=== PATIENT | female | born 1945 | race Caucasian/White ===

== ENCOUNTER 2022-04-22 12:06 | Emergency (ER) | payer OTHER, MEDICAID ==
[~2022-04-22] VITALS: Ht 157.5 cm; Wt 81.6 kg
[2022-04-22 12:07] VITALS: BP 119/47
--- NOTE | 2022-04-22 12:07 | NUR ---
BIBA to bed 02
--- NOTE | 2022-04-22 12:10 | NUR ---
76/F BIBA from [facility] for right earache x 1 hr. Per EMS, pt stated something "feels stuck in ear." Patient at baseline mentation A&Ox1-2 GCS 14 d/t hx dementia. Patient denies fever, chills, headache. monitoring manager in place. VSS. Bed locked in lowest position, side rails x 2 for pt safety. PMH: dementia, Alzheimers dx Meds: lasix, hydralazine, atorvastatin, amlodipine, lisinopril Allergies: paxil
--- NOTE | 2022-04-22 12:10 | NUR ---
Note undone in EDM - 04/22/22 at 1240 by [facility] 76/F ANNETTE from [facility] for right earache x 1 hr. Per EMS, pt stated something "feels stuck in ear." Patient Kyrgyz speaking, at baseline mentation A&Ox1-2 GCS 14 d/t hx dementia. Patient denies fever, chills, headache. cafeteria monitor in place. VSS. Bed locked in lowest position, side rails x 2 for pt safety. PMH: dementia, Alzheimers dx Meds: lasix, hydralazine, atorvastatin, amlodipine, lisinopril Allergies: paxil
--- NOTE | 2022-04-22 13:55 | NUR ---
Called [facility] and spoke with Jitendra advised patient pending discharge requesting transportation. Per Jitendra, transportation stops at 1400 and transporter will not be able to transport.
[2022-04-22] MEDS ORDERED: CARB15DR61 OT (14:01)
--- NOTE | 2022-04-22 14:21 | NUR ---
Transportation ETA 1830. Patient attempted to ambulate out of bed. Reoriented to situation and status update given. Patient cooperative at this time and assisted back into [facility] with side rails x 2 for pt safety.
--- NOTE | 2022-04-22 14:32 | NUR ---
Water cup provided per request. Pt cooperative at this time.
--- NOTE | 2022-04-22 14:58 | NUR ---
Patient found standing with both hands holding handrail. Reoriented to situation and assisted back into bed. field liability generalist remains in place. Bed locked in lowest position, side rails x 2 for pt safety.
--- NOTE | 2022-04-22 15:26 | NUR ---
Patient attempting to get out of bed. Reoriented to situation and patient assisted back to semi-fowlers position. WEDDING CONSULTANT Ba made aware; will attempt to find sitter.
--- NOTE | 2022-04-22 15:32 | NUR ---
Anthony tripp in [facility] - 04/22/22 at 1627 by YESSICA Security notified and at bedside for 1:1 observation.
--- NOTE | 2022-04-22 16:27 | NUR ---
Patient resting in semi-fowlers requesting food. Jello, pudding given to patient. Bed assisted in high-fowlers; patient eating at this time. All needs met.
[2022-04-22 17:30] VITALS: BP 117/68
--- NOTE | 2022-04-22 17:30 | NUR ---
[employer] transportation at bedside.
--- NOTE | 2022-04-22 17:32 | NUR ---
Patient discharged with v/s stable. Written and verbal after care instructions given and explained. Patient verbalized understanding. Ambulatory with steady gait. All questions addressed prior to discharge. Advised to follow up with PMD.
== END 2022-04-22 17:32 ==
LOC: MED 12:06
DX: H61.21 Impacted cerumen, right ear (principal); G30.9 Alzheimer's disease, unspecified; F02.80 Dementia in other diseases classified elsewhere, unspecified severity, without behavioral disturbance, psychotic disturbance, mood disturbance, and anxiety; E78.5 Hyperlipidemia, unspecified; Z79.899 Other long term (current) drug therapy; Z88.8 Allergy status to other drugs, medicaments and biological substances
CPT/HCPCS: 99283

== ENCOUNTER 2022-04-28 20:04 | Inpatient (IN) | payer OTHER, MEDICAID ==
[~2022-04-28] VITALS: Ht 157.5 cm; Wt 89.4 kg
[2022-04-28 20:04] VITALS: BP 134/94
[~2022-04-28 20:04] MED LIST: CARB15DR61 OT
[2022-04-28] MEDS ORDERED: NACL 0.9% 1,000 ML IV SCH (20:20)
[2022-04-28] MEDS ORDERED: ONDANSETRON 4 MG/2 ML VIAL IVP ONE (20:20)
--- NOTE | 2022-04-28 21:02 | NUR ---
PT ANNETTE DAVIS. TAKEN TO BED 11
--- NOTE | 2022-04-28 21:15 | NUR ---
X-Ray at bedside.
--- NOTE | 2022-04-28 21:30 | NUR ---
Pt taken to CT
[2022-04-28 21:37] LABS: BASOPHILS % (AUTO) 0.3 % (0.0-2.0); EOSINOPHILS % (AUTO) 0.1 % (0.0-4.0); HEMATOCRIT 34.2 % (36-48); HEMOGLOBIN 11.4 g/dL (12.0-16.0); LYMPHOCYTES # (AUTO) 0.4 K/uL (2.5-16.5); LYMPHOCYTES % (AUTO) 4.6 % (20.5-51.1); MEAN CORPUSCULAR HEMOGLOBIN 32 pg (27-31); MEAN CORPUSCULAR HGB CONC 33 g/dL (33-37); MEAN CORPUSCULAR VOLUME 95.8 fL (80-94); MONOCYTES # (AUTO) 0.2 K/uL (0.8-1.0); MONOCYTES % (AUTO) 2.6 % (1.7-9.3); NEUTROPHILS # (AUTO) 8.9 K/uL (1.8-7.7); NEUTROPHILS % (AUTO) 92.4 % (42.2-75.2); PLATELET COUNT (AUTO) 156 K/uL (140-450); RED BLOOD CELL COUNT(AUTO) 3.57 MIL/uL (4.20-5.40); WHITE BLOOD COUNT (AUTO) 9.6 K/uL (4.8-10.8)
[2022-04-28 22:02] LABS: ALBUMIN 3.9 g/dL (3.4-5.0); ANION GAP 13.9 (8-16); ASPARTATE AMINOTRANSFERASE 26 U/L (15-37); CARBON DIOXIDE 25.1 mmol/L (21-32); CHLORIDE 108 mmol/L (98-107); CREATININE 1.6 mg/dL (0.6-1.3); GLUCOSE 182 mg/dL (74-106); SODIUM SERUM 143 mmol/L (136-145); TOTAL BILIRUBIN 0.5 mg/dL (0.0-1.0); UREA NITROGEN, BLOOD 40 mg/dL (7-18)
[2022-04-28] MEDS ORDERED: ASPIRIN 325 MG TAB PO ONE (23:10)
--- NOTE | 2022-04-28 23:30 | NUR ---
SWABS FOR CE, INFLUENZA SENT TO LAB
[2022-04-28 23:37] LABS: CREATINE KINASE MB 4.3 ng/mL (0-3.6)
[2022-04-29] VITALS (12 sets, daily range): BP systolic 62–157; BP diastolic 34–78
[2022-04-29 00:35] LABS: APPEARANCE,URINE CLEAR (CLEAR); BILIRUBIN,URINE NEGATIVE (NEGATIVE); BLOOD, URINE NEGATIVE (NEGATIVE); COLOR,URINE YELLOW (YELLOW); LEUKOCYTE ESTERASE ,URINE NEGATIVE (NEGATIVE); NITRITE, URINE NEGATIVE (NEGATIVE); UGLUCOSE NEGATIVE (NEGATIVE)
--- NOTE | 2022-04-29 00:59 | NUR ---
Report given to LEONORA Yepez. VSS. Pt on 4LNC. Pt transported with belongings.
--- NOTE | 2022-04-29 01:32 | NUR ---
PT JUST ARRIVED ON UNIT AND THIS NURSE WAS NOTIFIED BY EDRN THAT PT HAS A LARGE PROLAPSED RECTUM. APPROX. DIMENSIONS: 4" LONG X 2-2.5" DIAMETER. PROLAPSED RECTUM PHOTOGRAPHED W MEASURING TAPE AND THEN DR. SQUIRES WAS TEXTED FOR ORDERS ([facility]). PT IN NO APPARENT DISTRESS OTHERWISE. Addendum: 04/29/22 at [address] SQUIRES MESSAGED BACK AND ASKED FOR OC SURGEON TO ASSESS PT IF RECTUM IS NOT REDUCIBLE (APPEARS NOT REDUCIBLE). DR SHARMA ([phone]) PAGED. AWAITING CB.
--- NOTE | 2022-04-29 05:35 | NUR ---
MRSA SCREEN SWAB SENT TO LAB.
--- NOTE | 2022-04-29 07:32 | NUR ---
END OF SHIFT NOTES: PHOTOS OF PROLAPSED RECTUM SENT TO DR SHARMA. CRITICAL LAB RESULT FOR TROPONIN THIS A.M. (535) REPORTED TO DR SQUIRES.
[2022-04-29] MEDS ORDERED: HEPARIN PER PHARMACY MC PRN (08:00)
[2022-04-29] MEDS ORDERED: LORazepam 2 MG/ML VIAL IM/IVP PRN (08:50)
--- NOTE | 2022-04-29 09:15 | NUR ---
PATIENT HAS BEEN SCREENED AND CATEGORIZED MODERATE NUTRITION RISK. PATIENT WILL BE SEEN WITHIN 3-5 DAYS OF ADMISSION. FNS REFERRAL RECEIVED ON 04/29/22 FOR VOMITING X 4 HOURS PRIOR TO ADMISSION. REFERRAL DOES NOT MEET HIGH RISK CRITERIA PER HOSPITAL POLICY. PT WILL BE SEEN AND ASSESSED ACCORDING TO THE NUTRITION CARE POLICY. REVIEWED BY ANG ELIZABETH RD
[2022-04-29] MEDS: METOPROLOL 25 MG TAB PO SCH ×2 (09:17→20:54)
[2022-04-29] MEDS: ECOTRIN 81 MG TABEC PO SCH (09:17)
[2022-04-29] MEDS ORDERED: MAG SULF 2000 MG/WATER PREMIX 50 ML IV PRN (10:25)
[2022-04-29] MEDS ORDERED: POTASSIUM CHLORIDE 10 MEQ TABER PO PRN (10:25)
[2022-04-29] MEDS ORDERED: HYDROcodone/APAP 7.5/325 MG 1 TAB PO PRN (10:25)
[2022-04-29] MEDS ORDERED: ONDANSETRON 4 MG/2 ML VIAL IVP PRN (10:25)
[2022-04-29] MEDS ORDERED: ACETAMINOPHEN 325 MG TAB PO PRN (10:25)
[2022-04-29] MEDS: NACL 0.9% 1,000 ML IV SCH ×2 (10:25→20:56)
[2022-04-29 10:52] LABS: BASOPHILS % (AUTO) 0.4 % (0.0-2.0); EOSINOPHILS % (AUTO) 0.2 % (0.0-4.0); HEMATOCRIT 35.4 % (36-48); HEMOGLOBIN 11.7 g/dL (12.0-16.0); LYMPHOCYTES # (AUTO) 1.3 K/uL (2.5-16.5); MEAN CORPUSCULAR HEMOGLOBIN 32 pg (27-31); MEAN CORPUSCULAR HGB CONC 33 g/dL (33-37); MEAN CORPUSCULAR VOLUME 96.5 fL (80-94); MONOCYTES # (AUTO) 0.8 K/uL (0.8-1.0); MONOCYTES % (AUTO) 10.7 % (1.7-9.3); NEUTROPHILS # (AUTO) 5.1 K/uL (1.8-7.7); NEUTROPHILS % (AUTO) 70.7 % (42.2-75.2); PLATELET COUNT (AUTO) 150 K/uL (140-450); RED BLOOD CELL COUNT(AUTO) 3.67 MIL/uL (4.20-5.40); RED CELL DISTRIBUTION WIDTH 14.7 % (11.6-13.7); WHITE BLOOD COUNT (AUTO) 7.2 K/uL (4.8-10.8)
[2022-04-29 11:30] LABS: CHOL/HDL RATIO 2.1 (1-4.5); FREE T4 (FREE THYROXINE) 1.72 ng/dL (0.76-1.46); MAGNESIUM 2.3 mg/dL (1.8-2.4); PHOSPHORUS 4.5 mg/dL (2.5-4.9); THYROID STIMULATING HORMONE 0.63 uIU/mL (0.34-3.74)
--- NOTE | 2022-04-29 12:02 | NUR ---
DC PLANNING: PER DR SHARMA'S ORDER TO TRANSFER TO [facility] FOR POSSIBLE SURGERY FOR RECTAL PROLAPSE SURGERY. [facility] JOSSELINE TO FOLLOW Addendum: 04/29/22 at 1616 by Abby Molina RN DC PLANNING: JOSSELINE SPOKE WITH PT'S DAUGHTER NOTIFIED HER THAT OUR SURGEON DR SHARMA RECOMMENDED TO TRANSFER PATIENT TO [facility] TO DO THE SURGERY RECTAL PROLAPSE SURGERY. PER DAUGHTER PT WAS AT [facility] A YEAR AGO AND DIDN'T RECOMMEND TO HAVE SURGERY AND ALSO HER PCP WON'T RECOMMENDED. JOSSELINE SPOKE WITH DR SHARMA NOTIFIED HIM THAT DAUGHTER REFUSED FOR HER MOTHER TO HAVE A SURGERY. DR SHARMA CANCELED THE SURGERY. Addendum: 04/29/22 at 1618 by Abby Molina RN DC PLANNING: RECEIVED A CALL FROM AMARJIT CHRISTIAN STATED AMARJIT ARE NOT CONTRACTED WITH [facility] HOW EVER PT CAN GO TO [place] WITH THE AUTH # [id number] . PATIENT CODED AT THIS TIME CODE BLUE IN PROGRESS. CM TO FOLLOW Addendum: 04/30/22 at 1250 by Abby Molina RN DC PLANNING: PATIENT INTUBATED SEDATED FIO2 100%. CONTINUED IVF, AND IV ABX ZOSYN, AND ON VASOPRESSIN, SODIUM BICARB AND PROPOFOL DRIP. CM TO FOLLOW
[2022-04-29 12:03] LABS: ANION GAP 9.4 (8-16); CARBON DIOXIDE 29.3 mmol/L (21-32); CHLORIDE 109 mmol/L (98-107); CREATININE 1.5 mg/dL (0.6-1.3); GLUCOSE 95 mg/dL (74-106); POTASSIUM 3.7 mmol/L (3.5-5.1); SODIUM SERUM 144 mmol/L (136-145); UREA NITROGEN, BLOOD 33 mg/dL (7-18)
[2022-04-29] MEDS ORDERED: PROPOFOL 1000 MG/100 ML PREMIX 100 ML IV ONE (16:05)
--- NOTE | 2022-04-29 16:07 | NUR ---
AROUND 1538, RESPITE CARE PROVIDER INFORM NURSE THAT PATIENT IS OUT TEL. NURSE WENT INTO THE ROOM CHECK PATIENT'S STATUS AND FOUND PATIENT NON-RESPONSIVE, SOME MUCUS/SALVER VISITABLE AROUND PATIENT'S MOUTH, SKIN PALE. NURSE CALL CODE AND RAPID RESPONSIVE TEAM HERE, START CPR AT 1540, AFTER 20 MINUTES RESUSCITATION, PATIENT RETURN TO HAVE PULSE AT 1600. PCP, DR. SQUIRES INFORMED THAT PATIENT GO CODE BLUE, AND PATIENT'S NEXT KIN UPDATED PATIENT'S CURRENT CONDITION AND TRANSFER PATIENT TO ICU.
--- NOTE | 2022-04-29 16:19 | NUR ---
DC PLANNING ASSESSMENT COMPLETE PLEASE REFER TO ASSESSMENT FOR DETAILS OUTREACHED TO PTS DAUGHTER CAITLIN AT 1240PM TO CONFIRM COLLAT INFO GATHERED FROM JULIETA MR ADMIN. INFORMATION CONFIRMED. CAITLIN REQUESTING UPDATE ON PT CLINICALS AND WAS TRANSFERRED TO CM FOR UPDATE. PT CURRENTLY HAS HLOC ORDER, CM WORKING ON IDENTIFYING HLOC PLACEMENT. Addendum: 04/29/22 at 1626 by Jami Crawford SS Amended: Links added.
[2022-04-29] MEDS ORDERED: PROPOFOL 1000 MG/100 ML PREMIX 100 ML IV PRN (16:25)
--- NOTE | 2022-04-29 16:30 | NUR ---
TRANSFERRED PATIENT TO ICU-8 SEDATED GOOD CHEST RISE AIRWAY PATENT
--- NOTE | 2022-04-29 16:30 | NUR ---
RECEIVED PT. FROM TELE RM 115 IN BED PT. SEDATED WITH PROPOFOL ETT TO VENT 100% FIO2 450 VT.RATE 16 PEEP OF 5. PT HAS NO IV LINE ONLY 1 IO WHICH PROPOFOL IS INFUSING.
--- NOTE | 2022-04-29 17:08 | NUR ---
DR. AUTUMN LAWTON AR BEDSIDE FOR REINTUBATION DUE TO ENDOTRACHEAL LEAKAGE - CAR RACER BALLOON; USING A GLIDESCOPE AND REMY PATIENT SUCCESSFULLY INTUBATION WITH AN ENDOTRACHEAL TUBE #7.5 SECURED AT 24cm TEETH GUM LINE WITH AN ANCHOR FAST CUFF INFLATED WITH 7CC OF AIR VIA A 10CC SYRINGE
[2022-04-29] MEDS ORDERED: NOREPINEPHRINE 4 MG in DEXTROSE 5% 250 ML IV PRN (17:45)
[2022-04-29 17:53] LABS: BARBITURATE, URINE NEGATIVE ng/ml (NEG <=200); BENZODIAZEPINE, URINE NEGATIVE ng/mL (NEG <=200); CANNABINOID, URINE NEGATIVE ng/mL (NEG <=50); COCAINE, URINE NEGATIVE ng/mL (NEG <=300); OPIATE, URINE NEGATIVE ng/mL (NEG <=2000); PHENCYCLIDINE SCREEN,URINE NEGATIVE ng/mL (NEG <=25)
--- NOTE | 2022-04-29 19:23 | NUR ---
Assumed pt care report received from ROBBI LEA met pt unresponsive intubated ETT to ventilator A/C PRVC rate 16 FIO2 100% TV 400 PEEP 5 tolerating well oral care done and suction pinkish sputum/secretions, gag reflex and weak cough. low blood pressure ongoing titrating meds Levophed to keep SBP >90. OGT clamped NPO no kuo and no urine noted. Family support, ongoing education on care plan/tx also encouraged them to verbalize their concerns. Will continue to monitor pt and treat as per care plan.
--- NOTE | 2022-04-29 20:10 | NUR ---
Notified DR SQUIRES about pt's condition critical ABG results order received to consult Dr Cavazos PULMONOGIST.
[2022-04-29] MEDS ORDERED: DOCUSATE SODIUM 100 MG GELCAP PO SCH (21:00)
--- NOTE | 2022-04-29 21:10 | NUR ---
Notified Dr EVERETT about pt's ABG, reason for pt's transfer to ICU post CODE BLUE,ongoing tx vent settings based on the ABG order received, to change vent settings rate 24 TV 500, SODIUM BICARBONATE 2 AMPS IVP and Bicarb drip D5W with 3 amps @75ml/hr. Also if Levophed not effective to add Vasopressin and later Marino synephrine to keep SBP >90 and Map >60.
[2022-04-29] MEDS ORDERED: SODIUM BICARBONATE 8.4% PFS 50 MEQ/50 ML SYR IVP SCH (21:20)
[2022-04-29] MEDS ORDERED: SODIUM BICARBONATE 8.4% PFS 50 MEQ/50 ML SYR IVP ONE (21:36)
[2022-04-29] MEDS ORDERED: VASOPRESSIN 20 UNITS in NACL 0.9% 250 ML IV SCH (21:40)
[2022-04-29] MEDS: SODIUM BICARBONATE 8.4% 150 MEQ in DEXTROSE 5% 1,000 ML IV SCH (22:00)
--- NOTE | 2022-04-29 22:00 | NUR ---
Updates pt's daughter at the bedside on pt's condition ongoing tx , she verbalized understanding and this RN encouraged to call back later.
[2022-04-29] MEDS: PROPOFOL 1000 MG/100 ML PREMIX 100 ML IV PRN (22:05)
[2022-04-29] MEDS ORDERED: NOREPINEPHRINE 8 MG in DEXTROSE 5% 250 ML IV PRN (22:15)
[2022-04-29] MEDS ORDERED: VASOPRESSIN 20 UNITS/ML VIAL ONE (23:15)
[2022-04-29] MEDS ORDERED: NOREPINEPHRINE 4 MG/4 ML VIAL IV ONE (23:15)
[2022-04-29] MEDS ORDERED: VASOPRESSIN 40 UNITS in NACL 0.9% 250 ML IV SCH (23:25)
[2022-04-30] VITALS (32 sets, daily range): BP systolic 66–162; BP diastolic 36–73
--- NOTE | 2022-04-30 04:41 | NUR ---
Notified Dr Rosales that pt has no urine output all through the shift, ubable to insert kuo due to rectal and uterine prolapse also previous labs with elevated BUN 33 and Creatinine 1.5. Order received dylan consult Dr Godinez
[2022-04-30 05:23] LABS: EOSINOPHILS % (AUTO) 0.1 % (0.0-4.0); HEMATOCRIT 32.2 % (36-48); HEMOGLOBIN 10.4 g/dL (12.0-16.0); LYMPHOCYTES # (AUTO) 0.9 K/uL (2.5-16.5); LYMPHOCYTES % (AUTO) 3.3 % (20.5-51.1); MEAN CORPUSCULAR HEMOGLOBIN 32 pg (27-31); MEAN CORPUSCULAR HGB CONC 32 g/dL (33-37); MEAN CORPUSCULAR VOLUME 98.1 fL (80-94); MONOCYTES # (AUTO) 1.2 K/uL (0.8-1.0); MONOCYTES % (AUTO) 4.3 % (1.7-9.3); NEUTROPHILS # (AUTO) 24.9 K/uL (1.8-7.7); NEUTROPHILS % (AUTO) 92.3 % (42.2-75.2); PLATELET COUNT (AUTO) 127 K/uL (140-450); RED BLOOD CELL COUNT(AUTO) 3.28 MIL/uL (4.20-5.40); RED CELL DISTRIBUTION WIDTH 14.5 % (11.6-13.7)
--- NOTE | 2022-04-30 05:27 | NUR ---
RT ATTEMPTED TO OBTAIN ABG AT 0500 ORDERED. WILL HAVE DAY SHIFT RT FOLLOW UP WITH THE COMPLETION OF THIS ORDER.
[2022-04-30] MEDS ORDERED: NOREPINEPHRINE 4 MG/4 ML VIAL IV ONE (05:52)
[2022-04-30 06:16] LABS: MAGNESIUM 1.9 mg/dL (1.8-2.4); PHOSPHORUS 5.9 mg/dL (2.5-4.9)
[2022-04-30 06:32] LABS: ANION GAP 22.6 (8-16); CARBON DIOXIDE 22.7 mmol/L (21-32); CHLORIDE 108 mmol/L (98-107); CREATININE 2.9 mg/dL (0.6-1.3); GLUCOSE 146 mg/dL (74-106); POTASSIUM 3.3 mmol/L (3.5-5.1); SODIUM SERUM 150 mmol/L (136-145); UREA NITROGEN, BLOOD 45 mg/dL (7-18)
--- NOTE | 2022-04-30 06:50 | NUR ---
RECEIVED PT ON PRVC 500,F24,+5, 100%. SATURATION WAS 99%. TITRATED FIO2 TO 95%. ABG DONE, ENTERED AND GIVEN TO MANAGER VAN. VENT WHEELS ARE LOCKED, PLUGGED INTO RED OUTLET, AMBUBAG AT BEDSIDE, ALARMS ARE SET AND AUDIBLE TO THE NURSE STATION. WILL CONTINUE TO MONITOR.
--- NOTE | 2022-04-30 07:28 | NUR ---
Change of shift report given to Janet LEA for continuity of care pt still in critical guarded condition but vitals WNL ongoing Levophed and Vasopressin drip ETT to ventilator tolerating all care.
--- NOTE | 2022-04-30 07:30 | NUR ---
Received report on pt. Pt intubated and sedated with diprivan drip, in no signs of acute distress or pain, sedated with diprivan drip. Pupils reactive, unable to follow commands. Pt also on levophed, sodium bicarb, and vasopressin drips to CELY PICC line. OGT in place, clamped. Pt noted with uterine prolapse. Bed locked in lowest position, HOB elevated. Heels offloaded with pillows.
--- NOTE | 2022-04-30 08:30 | NUR ---
Applied sacral foam dressing for protection, skin intact. Foam square and pillow case applied to offload uterine prolapse.
[2022-04-30] MEDS: METOPROLOL 25 MG TAB PO SCH ×2 (08:55→21:47)
[2022-04-30] MEDS: PANTOPRAZOLE 40 MG INJ VIAL IVP SCH (08:55)
[2022-04-30] MEDS: ECOTRIN 81 MG TABEC PO SCH (08:56)
[2022-04-30] MEDS: PROPOFOL 1000 MG/100 ML PREMIX 100 ML IV PRN (08:58)
--- NOTE | 2022-04-30 09:20 | NUR ---
TV LOWERED FORM [address] ALCOCER.
--- NOTE | 2022-04-30 09:30 | NUR ---
Dr. Harp and Dr. García rounding on pt. Both MDs spoke with pt's son, Amol, regarding pt's status and plan of care. Amol states he will discuss with family regarding how aggressive of treatment they want for pt.
[2022-04-30] MEDS ORDERED: POTASSIUM CHLORIDE 20% 40 MEQ/15 ML UDC GT PRN (09:40)
[2022-04-30] MEDS ORDERED: KCL 20 MEQ/WATER INJ PREMIX 100 ML IV SCH (10:00)
[2022-04-30] MEDS ORDERED: COMMUNICATION ORDER MC PRN (10:20)
[2022-04-30] MEDS: DOCUSATE 100 MG/10 ML UDC GT SCH ×2 (10:30→21:00)
[2022-04-30] MEDS: PIPERACILLIN/TAZOBACTAM 2.25 GM in DEXTROSE 5% 50 ML IV SCH ×2 (10:45→21:45)
[2022-04-30] MEDS: NOREPINEPHRINE 16 MG in DEXTROSE 5% 250 ML IV PRN (11:00)
--- NOTE | 2022-04-30 11:00 | NUR ---
Dr. Rosales rounding on pt
--- NOTE | 2022-04-30 11:26 | NUR ---
Dr. Rosales speaking with pt's daughter Morenita regarding plan of care.
--- NOTE | 2022-04-30 11:28 | NUR ---
INCREASED PEEP FROM [address] ALCOCER ORDER. WILL CONTINUE TO MONITOR PT
[2022-04-30] MEDS: SODIUM BICARBONATE 8.4% 150 MEQ in DEXTROSE 5% 1,000 ML IV SCH (11:59)
[2022-04-30] MEDS: OSELTAMIVIR PHOSPHATE 6 MG/ML SUSPENSION GT SCH (11:59)
[2022-04-30] MEDS: FUROSEMIDE 40 MG/4 ML VIAL IVP SCH ×2 (12:20→21:00)
[2022-04-30] MEDS ORDERED: MAG SULF 2000 MG/WATER PREMIX 50 ML IV PRN (13:00)
[2022-04-30] MEDS ORDERED: POTASSIUM CHLORIDE 10 MEQ TABER PO PRN (13:00)
[2022-04-30] MEDS: NACL 0.45% 1,000 ML IV SCH (13:26)
--- NOTE | 2022-04-30 14:58 | NUR ---
Pt's daughter Morenita states that her and her family are wanting to change code status to DNR with comfort measures and states they do not want to be aggressive with treatment. Morenita also states that family members will be in to see patient and then will request for code status change once family has made visit.
--- NOTE | 2022-04-30 15:11 | NUR ---
Dr. Rosales informed of family's decision
[2022-04-30] MEDS: CALCIUM ACETATE 667 MG TAB PO SCH (17:23)
--- NOTE | 2022-04-30 18:25 | NUR ---
Pt's daughter Morenita present. Updated on pt's status. Morenita states she will present decision tomorrow regarding code status.
--- NOTE | 2022-04-30 18:46 | NUR ---
Closing Pt remains intubated, sedated, on pressors. No signs of acute pain or distress. Nonpurposeful eye opening noted, does not follow commands. No void noted throughout shift. Will endorse plan of care to RN.
--- NOTE | 2022-04-30 19:40 | NUR ---
RECEIVED PT. FROM DAY SHIFT LEONORA MACK. PT ON ETT TO VENT A/C PRVC RATE 24, FIO2 80%, TV 450, PEEP 10 AND 02 SAT 97%. BILATERAL LUNGS DIMINISHED. ABDOMEN SOFT AND NON TENDER. ABDOMINAL BOWEL SOUNDS HYPOACTIVE. NPO ORDERED. SINUS RHYTHM HR 94 ON THE MONITOR. IV TO RIGHT UPPER ARM PICC LINE CATHETER PATENT AND INTACT. NO S/S OF INFILTRATION, NO S/S OF INFECTION.INFUSING LEVOPHED DRIP 20MCG/MIN, DIPRIVAN 10MCG/KG/MIN,VASOPRESSIN 0.01 U/MIN. IV TO RIGHT AC 18G RUNNING 1/2 NS AT 50 ML/HR. REPOSITIONED AND PLACED IN COMFORTABLE POSITION. SKIN INTACT. PROVIDED SAFE AND QUIET ENVIRONMENT. NO S/S OF RESPIRATORY DISTRESS. NO S/S OF PAIN. WILL CONT. TO MONITOR.
--- NOTE | 2022-04-30 20:14 | NUR ---
DR. VILLAFANA CALLED AND ASKED IF WHERE IS THE PROLAPSE OF THE PT. I CHECKED THE PT. AND THE PROLAPSE IS IN THE VAGINA. REPORTED TO DR. VILLAFANA ON THE PHONE. NO NEW ORDER MADE.
[2022-04-30] MEDS ORDERED: VANCOMYCIN PER PHARMACY MC PRN (20:15)
[2022-04-30] MEDS ORDERED: VANCOMYCIN 1GM/DEXT 5% PREMIX 200 ML IV SCH (21:00)
[2022-04-30] MEDS ORDERED: NACL 0.45% 1,000 ML IV SCH (23:10)
[2022-05-01] VITALS (21 sets, daily range): BP systolic 119–171; BP diastolic 52–98
--- NOTE | 2022-05-01 00:44 | NUR ---
SENT MESSAGE TO DR. GUTIERREZ THAT PT. TROPONIN IS 4,443. WILL WAIT FOR HIS RESPONSE.
[2022-05-01] MEDS: PROPOFOL 1000 MG/100 ML PREMIX 100 ML IV PRN (04:17)
[2022-05-01] MEDS: NOREPINEPHRINE 16 MG in DEXTROSE 5% 250 ML IV PRN (04:20)
[2022-05-01] MEDS: SODIUM BICARBONATE 8.4% 150 MEQ in DEXTROSE 5% 1,000 ML IV SCH (04:23)
[2022-05-01] MEDS: PIPERACILLIN/TAZOBACTAM 2.25 GM in DEXTROSE 5% 50 ML IV SCH ×2 (04:24→12:03)
[2022-05-01] MEDS: FUROSEMIDE 40 MG/4 ML VIAL IVP SCH ×2 (04:25→12:02)
[2022-05-01 05:27] LABS: BASOPHILS % (AUTO) 0.1 % (0.0-2.0); HEMATOCRIT 27.7 % (36-48); HEMOGLOBIN 9.2 g/dL (12.0-16.0); LYMPHOCYTES # (AUTO) 1.4 K/uL (2.5-16.5); MEAN CORPUSCULAR HEMOGLOBIN 32 pg (27-31); MEAN CORPUSCULAR HGB CONC 33 g/dL (33-37); MEAN CORPUSCULAR VOLUME 95.1 fL (80-94); MONOCYTES # (AUTO) 1.2 K/uL (0.8-1.0); MONOCYTES % (AUTO) 4.2 % (1.7-9.3); NEUTROPHILS % (AUTO) 90.7 % (42.2-75.2); PLATELET COUNT (AUTO) 107 K/uL (140-450); RED BLOOD CELL COUNT(AUTO) 2.92 MIL/uL (4.20-5.40); RED CELL DISTRIBUTION WIDTH 14.4 % (11.6-13.7)
[2022-05-01 05:33] LABS: WHITE BLOOD COUNT (AUTO) 28.7 K/uL (4.8-10.8)
[2022-05-01 06:16] LABS: ANION GAP 18.1 (8-16); CHLORIDE 99 mmol/L (98-107); GLUCOSE 128 mg/dL (74-106); POTASSIUM 4.1 mmol/L (3.5-5.1); SODIUM SERUM 142 mmol/L (136-145)
[2022-05-01 06:17] LABS: MAGNESIUM 1.8 mg/dL (1.8-2.4); PHOSPHORUS 4.6 mg/dL (2.5-4.9)
[2022-05-01 06:30] LABS: CREATININE 4.5 mg/dL (0.6-1.3); UREA NITROGEN, BLOOD 70 mg/dL (7-18)
--- NOTE | 2022-05-01 07:00 | NUR ---
RECEIVED PT ON PRVC 450,24,+10,70%. VENT WHEELS ARE LOCKED PLUGGED INTO RED OUTLET. AMBUBAG AT BEDSIDE, ALARMS ARE SET AND AUDIBLE. WILL CONTINUE TO MONITOR.
--- NOTE | 2022-05-01 07:28 | NUR ---
REPORT GIVEN TO DAY JENNIFFER MACK RN FOR CONTINUITY OF CARE.
--- NOTE | 2022-05-01 07:30 | NUR ---
Received report on pt. Pt intubated and sedated with diprivan drip, in no signs of pain or distress. Unable to follow commands. Pt also on levohped, vasopressor, and sodium bicarb drips. OGT in place. Per report, pt had small amount of urine noted on chux pad.
[2022-05-01] MEDS ORDERED: VANCOMYCIN 750 MG in DEXTROSE 5% 250 ML IV SCH (08:00)
--- NOTE | 2022-05-01 08:39 | NUR ---
PT. WITH LOW VALENTIN SCALE AT MODERATE TO HIGH RISK, CONTINUE TO FOLLOW PRESSURE INJURY PREVENTION INTERVENTIONS. -POSITIONING: TURN AND REPOSITION PATIENT Q 2H OR SOONER USE PILLOWS TO KEEP BONY PROMINENCES FROM DIRECT CONTACT WITH SURFACES USE REPOSITIONING WEDGES TO PROVIDE 30-DEGREE ANGLE FOR SIDE LYING POSITIONS OFFLOADING OR FOAM DRESSING TO ALL TUBING TO PREVENT MEDICAL DEVICES RELATED PRESSURE INJURY -RE-EVALUATING AND MANAGING INCONTINENCE MONITOR SKIN CONDITION DURING POSITION CHANGE DO NOT MASSAGE REDNESS, BONY PROMINENCES FREQUENT LORENA-CARE AND PROVIDE BARRIER CREAMS PRN IF SOILING MOISTURE CONTROL BY OFFER BED HERNANDEZ/URINAL /ABSORBENT PAD TO WICK AND HOLD MOISTURE KEEP SKIN DRY AND PROTECT FROM FRICTION -MANAGE FRICTION/SHEAR/MOBILITY KEEP HOB AT THE LOWEST LEVEL OF ELEVATION NO MORE THAN 30 DEGREE UNLESS OTHERWISE CONTRAINDICATED USE LIFT SHEET OR TRANSFER DEVICE TO MOVE PATIENT AND PREVENT LATERAL SHEER. PROTECT HEELS, ELBOWS BONY PROMINENCES WITH SKIN BERRIES OR FOAM DRESSING IF EXPOSED TO FRICTION OFFLOAD BILATERAL HEELS BY PLACING PILLOWS UNDER CALVES AT ALL TIMES, UNLESS OTHERWISE CONTRAINDICATED -PRESSURE REDISTRIBUTION SURFACE THERAPY ANTONIO ISOFLEX MATTRESS -NUTRITION: PLEASE FOLLOW RD RECOMMENDATIONS AND OFFER NUTRITION SUPPLEMENTS IF ORDERED. PLEASE CONTACT WOUND CARE NURSE FOR ANY QUESTION AND CHANGE OF WOUND CONDITION.
[2022-05-01] MEDS: DOCUSATE 100 MG/10 ML UDC GT SCH (08:55)
[2022-05-01] MEDS: CALCIUM ACETATE 667 MG TAB PO SCH ×2 (08:55→11:55)
[2022-05-01] MEDS: PANTOPRAZOLE 40 MG INJ VIAL IVP SCH (08:56)
[2022-05-01] MEDS: ECOTRIN 81 MG TABEC PO SCH (08:56)
[2022-05-01] MEDS: METOPROLOL 25 MG TAB PO SCH (08:57)
[2022-05-01] MEDS: NACL 0.45% 1,000 ML IV SCH (09:00)
--- NOTE | 2022-05-01 10:00 | NUR ---
Pt noted with small amount incontinence void on chux pad. Perform jeevan care and linen change. Cradle uterine prolapse with pillow case. Repositioned pt. Addendum: 05/01/22 at 1202 by Agency Nurse 23, RN RN Sacral foam dressing applied for prophylaxis, skin intact.
[2022-05-01] MEDS: OSELTAMIVIR PHOSPHATE 6 MG/ML SUSPENSION GT SCH (11:55)
--- NOTE | 2022-05-01 11:58 | NUR ---
Pt's daughter, Morenita, and sister visiting. Updated regarding plan of care.
--- NOTE | 2022-05-01 14:15 | NUR ---
Code status changed to DNR with comfort measures as requested by pt's daughter Morenita, who signed code status form. Dr. Ocasio and Dr. Katiuska hare.
--- NOTE | 2022-05-01 14:45 | NUR ---
Started pt on morphine drip for comfort measures with morphine drip. Addendum: 05/01/22 at 1517 by Agency Nurse LEONORA Gregory RN Pt's children at bedside.
[2022-05-01] MEDS ORDERED: MORPHINE SULFATE 50 MG in NACL 0.9% 45 ML IV PRN (15:00)
--- NOTE | 2022-05-01 15:25 | NUR ---
Pt extubated for comfort measures by RT and placed on NC. Pt's children at bedside with pt.
--- NOTE | 2022-05-01 15:30 | NUR ---
TERMINAL EXTUBATION TO COMFORT CARE. PT CURRENTLY ON 4L NASAL CANNULA.
--- NOTE | 2022-05-01 16:00 | NUR ---
Record of signed by patient's daughter Morenita Smith. Patient's belongings sent home with Morenita.
--- NOTE | 2022-05-01 16:20 | NUR ---
[facility] notified of patient's expiration and state patient is not a candidate for organ donation. Case # [id number], spoke with Eliana.
--- NOTE | 2022-05-01 16:22 | NUR ---
Call out to [employer] [phone], left call back number for concession worker.
--- NOTE | 2022-05-01 17:00 | NUR ---
Sheet Manager Jacqueline Harris and cooler service supervisor Yulisa Mcrae return call, states patient body is able to be released. Left message with [facility] for pickup.
--- NOTE | 2022-05-01 19:40 | NUR ---
[facility] AND SIGNED THE RELEASE FORM.
== END 2022-05-01 15:51 | DRG 871 ==
LOC: MED 20:04 → MTU 23:34 → MIC 04-29 16:20
PROC: 5A1945Z Respiratory Ventilation, 24-96 Consecutive Hours (ICD-10-PCS; principal; 2022-04-29)
PROC: 0BH17EZ Insertion of Endotracheal Airway into Trachea, Via Natural or Artificial Opening (ICD-10-PCS; 2022-04-29)
PROC: 02HV33Z Insertion of Infusion Device into Superior Vena Cava, Percutaneous Approach (ICD-10-PCS; 2022-04-29)
PROC: B548ZZA Ultrasonography of Superior Vena Cava, Guidance (ICD-10-PCS; 2022-04-29)
PROC: 5A12012 Performance of Cardiac Output, Single, Manual (ICD-10-PCS; 2022-05-01)
DX: A41.9 Sepsis, unspecified organism (principal); I50.43 Acute on chronic combined systolic (congestive) and diastolic (congestive) heart failure; J10.00 Influenza due to other identified influenza virus with unspecified type of pneumonia; J96.01 Acute respiratory failure with hypoxia; N17.0 Acute kidney failure with tubular necrosis; R65.21 Severe sepsis with septic shock; J96.02 Acute respiratory failure with hypercapnia; E87.0 Hyperosmolality and hypernatremia; E87.20 Acidosis, unspecified; F02.83 Dementia in other diseases classified elsewhere, unspecified severity, with mood disturbance; D64.9 Anemia, unspecified; E78.00 Pure hypercholesterolemia, unspecified; F32.A Depression, unspecified; G30.9 Alzheimer's disease, unspecified; I11.0 Hypertensive heart disease with heart failure; I45.9 Conduction disorder, unspecified; I46.9 Cardiac arrest, cause unspecified; N81.4 Uterovaginal prolapse, unspecified; Z20.822 Contact with and (suspected) exposure to COVID-19; E78.5 Hyperlipidemia, unspecified; I10 Essential (primary) hypertension; E86.0 Dehydration; E83.51 Hypocalcemia; E83.39 Other disorders of phosphorus metabolism; E87.6 Hypokalemia; D69.6 Thrombocytopenia, unspecified; E87.8 Other disorders of electrolyte and fluid balance, not elsewhere classified; Z79.899 Other long term (current) drug therapy
CPT/HCPCS: 31500; 36415; 36556; 36600; 71045; 80048; 80053; 80305; 81003; 82140; 82150; 82550; 82553; 82803; 82948; 83036; 83605; 83690; 83735; 83880; 84100; 84439; 84443; 84484; 85025; 85610; 85730; 87040; 87081; 87635-QW; 92950; 94002; 94003; 96374; 96375; 99291; C9113; J1644; J1940; J2060; J2270; J2405; J2543; J2704; J3370; J3480; J3490; J7030; J7060; Q0092